=== PATIENT | female | born 1955 | race Caucasian/White ===

== ENCOUNTER → 2018-03-25 | Outpatient (CLI) | payer BC | LOC: M.RAD 14:00 | DX: Z12.31 Encounter for screening mammogram for malignant neoplasm of breast (principal) ==

== ENCOUNTER → 2018-04-01 | Outpatient (CLI) | payer BC, OTHER | LOC: M.ULTRA 14:00 | DX: N60.01 Solitary cyst of right breast (principal); N60.02 Solitary cyst of left breast ==